=== PATIENT | female | born 1985 | race Two or more races ===

== ENCOUNTER 2016-07-26 13:11 | Emergency (ER) | payer OTHER ==
[~2016-07-26] VITALS: Ht 167.6 cm; Wt 61.2 kg
[~2016-07-26 13:11] MED LIST: AMOXICILLIN500 MG ORAL; IBUPROFEN600 MG ORAL; NKM; ZOFRAN4 M3 ORAL
[2016-07-26] MEDS ORDERED: ROBAXIN500 MG PO (13:38)
[2016-07-26] MEDS ORDERED: IBUPROFEN600 MG ORAL (13:38)
[2016-07-26 13:56] VITALS: BP 120/68
--- NOTE | 2016-07-26 23:36 | Emergency Room Report ---
History of Present Illness General Chief Complaint: Back Pain-No Injury Source: Patient Present Illness HPI The patient is a 31-year-old female presenting with lower back pain which began yesterday for no known reason. The pain is described as a 9/10 dull ache it is worse with certain movements such as twisting. Patient denies prior injury to the back. Patient denies numbness or tingling of the extremities. Pt denies any other symptoms Allergies: Coded Allergies: NO KNOWN ALLERGIES (Unverified Allergy, Unknown, 06/15/15) Patient History Past Medical History: see triage record Pertinent Family History: none Last Menstrual Period: 3 days Now: No Reviewed Nursing Documentation: PMH: Agreed, PSxH: Agreed Nursing Documentation-PMH Past Medical History: No Stated History Review of Systems All Other Systems: negative except mentioned in HPI Physical Exam Vital Signs Date Time Temp Pulse Resp B/P Pulse Ox O2 Delivery O2 Flow Rate FiO2 07/26/16 13:21 98.8 77 18 116/71 98 Room Air Sp02 EP Interpretation: reviewed, normal General Appearance: no apparent distress, alert, GCS 15, non-toxic Head: normocephalic, atraumatic Eyes: bilateral eye PERRL, bilateral eye normal inspection ENT: hearing grossly normal, normal pharynx, no angioedema, normal voice Neck: full range of motion, supple/symm/no masses Respiratory: chest non-tender, lungs clear, normal breath sounds, speaking full sentences Genitourinary: normal inspection, no CVA tenderness Musculoskeletal: back normal, gait/station normal, normal range of motion, tender - TTP over limbar parspinous muscles Neurologic: alert, oriented x3, responsive, motor strength/tone normal, sensory intact, speech normal Psychiatric: judgement/insight normal, memory normal, mood/affect normal, no suicidal/homicidal ideation Skin: normal color, no rash, warm/dry, well hydrated Medical Decision Making PA Attestation Dr. Dawson is my supervising physician. Patient management was discussed with my supervising physician Diagnostic Impression: Primary Impression: Muscle strain ER Course The patient is a 31-year-old female presenting with lower back pain which began yesterday for no known reason. Ddx considered include but not limited to sprain/strain, muscle spasm, fracture , contusion Physical exam: Vitals within normal limits. No apparent distress. Lumbar spine: Tender to palpation over paraspinous muscles. No midline tenderness. No step-offs. Full active range of motion. Normal gait The patient will be discharged home with a prescription for Motrin and Robaxin. ER precautions are given Last Vital Signs Date Time Temp Pulse Resp B/P Pulse Ox O2 Delivery O2 Flow Rate FiO2 07/26/16 13:56 98.0 70 16 120/68 98 Room Air Status: improved Disposition: HOME, SELF-CARE Condition: Improved Scripts Methocarbamol* (ROBAXIN*) 500 Mg Tablet 500 MG PO TID, #21 TAB 0 Refills Prov: LEELA HUTCHISON.ASolitario 07/26/16 Ibuprofen* (MOTRIN*) 600 Mg Tablet 600 MG ORAL Q8H Y for For Pain, #30 TAB 0 Refills Prov: LEELA HUTCHISON 07/26/16 Referrals: NOT CHOSEN [facility]/,REFERRING (PCP) Patient Instructions: Back Pain, Adult, Muscle Strain Additional Instructions: I discussed my findings with the patient. All questions and concerns have been answered. Treatment and medication compliance have been addressed. I advised the patient that they need to follow up with PMD in 3-5 days. Return to ED if pain remains or worsens, numbness or tingling occurs, new rash is noticed, fever is noticed, or if needed for any reason. Patient verbalized understanding of discharge instructions. LEELA HUTCHISON Jul 26, 2016 23:34
== END 2016-07-26 14:00 | disposition home or self-care (01) ==
LOC: EMR 13:54
DX: T14.8 Other injury of unspecified body region (principal); X58.XXXA Exposure to other specified factors, initial encounter; Y92.9 Unspecified place or not applicable; Y99.8 Other external cause status
CPT/HCPCS: 99284

== ENCOUNTER 2018-01-12 15:53 | Emergency (ER) | payer OTHER ==
[~2018-01-12] VITALS: Ht 167.6 cm; Wt 51.3 kg
[~2018-01-12 15:53] MED LIST changes: +ROBAXIN500 MG PO
[2018-01-12 16:04] VITALS: BP 112/67
--- NOTE | 2018-01-12 16:30 | Emergency Room Report ---
History of Present Illness General Chief Complaint: Sore Throat Source: Patient Present Illness HPI 32-year-old female presents emergency department complaining of 6 out of 10 in severity sore throat, with tonsillar swelling and chills since this morning. Patient states that she took one of her old amoxicillin's as well as some Tylenol. Patient states that she frequently gets strep throat. Patient denies recent travel or ill contacts denies cough, headache, nasal congestion, allergy/ sneezing. Denies neck pain or stiffness. Reports her pain is exacerbated upon swallowing. denies CP, abdominal pain or GABRIEL. Allergies: Coded Allergies: NO KNOWN ALLERGIES (Unverified Allergy, Unknown, 06/15/15) Patient History Past Medical History: see triage record Past Surgical History: none Pertinent Family History: none Now: No Reviewed Nursing Documentation: PMH: Agreed; PSxH: Agreed Nursing Documentation-PMH Past Medical History: No Stated History Review of Systems All Other Systems: negative except mentioned in HPI Physical Exam Vital Signs Date Time Temp Pulse Resp B/P (MAP) Pulse Ox O2 Delivery O2 Flow Rate FiO2 01/12/18 15:57 98.2 75 17 112/67 97 Room Air 98.2 Sp02 EP Interpretation: reviewed, normal General Appearance: no apparent distress, alert, GCS 15, non-toxic Head: normocephalic, atraumatic Eyes: bilateral eye normal inspection, bilateral eye PERRL ENT: hearing grossly normal, no angioedema, normal voice, uvula midline, moist mucus membranes, tonsillar swelling, pharyngeal erythema, tonsillar exudate Neck: full range of motion, no meningismus, no bony tend Respiratory: chest non-tender, lungs clear, normal breath sounds, no wheezing, speaking full sentences Cardiovascular #1: regular rate, rhythm Genitourinary: normal inspection Musculoskeletal: back normal, gait/station normal, normal range of motion, non- tender Neurologic: alert, oriented x3, responsive, motor strength/tone normal, sensory intact, speech normal, grossly normal Psychiatric: judgement/insight normal Skin: normal color, no rash, warm/dry, well hydrated Lymphatic: no adenopathy Medical Decision Making PA Attestation Dr. Lazaro is my supervising physician whom pt. management has been discussed with. Diagnostic Impression: Primary Impression: Pharyngitis Qualified Codes: J02.0 - Streptococcal pharyngitis ER Course 32-year-old female presents emergency department complaining of 6 out of 10 in severity sore throat, with tonsillar swelling and chills since this morning. Patient states that she took one of her old amoxicillin's as well as some Tylenol. Patient states that she frequently gets strep throat. Patient denies recent travel or ill contacts denies cough, headache, nasal congestion, allergy/ sneezing. Denies neck pain or stiffness. Reports her pain is exacerbated upon swallowing. denies CP, abdominal pain or GABRIEL. Ddx considered but are not limited to: pharyngitis, strep, [employer], ludwigs angina, URI Vital signs: are WNL, pt. is afebrile H&PE are most consistent with: pharyngitis presumed strep. ORDERS: None required at this time as the diagnosis is clinical ED INTERVENTIONS: -Prednisone 60mg PO DISCHARGE: At this time pt. is stable for d/c to home. Will provide printed patient care instructions, and any necessary prescriptions. Care plan and follow up instructions have been discussed with the patient prior to discharge. Last Vital Signs Date Time Temp Pulse Resp B/P (MAP) Pulse Ox O2 Delivery O2 Flow Rate FiO2 01/12/18 16:04 98.2 74 17 112/67 97 Room Air 98.2 Disposition: HOME, SELF-CARE Condition: Stable Scripts Acetaminophen* (TYLENOL EXTRA STRENGTH*) 500 Mg Tablet 500 MG ORAL Q6H, #20 TAB 0 Refills Prov: Daniella Neely 01/12/18 Prednisone* (PREDNISONE*) 20 Mg Tablet 40 MG ORAL DAILY for 3 Days, #6 TAB Prov: Daniella Neely 01/12/18 Amoxicillin/Potassium Clav 875-125* (AUGMENTIN 875-125 TABLET*) 1 Each Tablet 1 TAB ORAL TWICE A DAY for 7 Days, #14 TAB Prov: Daniella Neely 01/12/18 Patient Instructions: Tonsillitis Additional Instructions: Take medications as directed. Follow up with a Primary Care Provider in 3-5 days, even if your symptoms have resolved. --Please review list of primary care clinics, if you do not already have a primary care provider Return sooner to ED if new symptoms occur, or current symptoms become worse. - Please note that this Emergency Department Report was dictated using [email or web address] lead developer technology software, occasionally this can lead to erroneous entry secondary to interpretation by the dictation equipment. Daniella Neely Jan 12, 2018 16:30
[2018-01-12] MEDS ORDERED: PREDNISONE20 MG ORAL (16:31)
[2018-01-12] MEDS ORDERED: TYLENOL EXTRA500 MG ORAL (16:31)
[2018-01-12] MEDS ORDERED: AUGMENTIN 875-1 EAC1 ORAL (16:31)
[2018-01-12 16:48] VITALS: BP 112/67
== END 2018-01-12 16:48 | disposition home or self-care (01) ==
LOC: EMR 16:33
DX: J02.9 Acute pharyngitis, unspecified (principal)
CPT/HCPCS: 99284; J7512

== ENCOUNTER 2018-04-19 18:32 | Emergency (ER) | payer OTHER ==
[~2018-04-19] VITALS: Ht 157.5 cm; Wt 49.9 kg
[~2018-04-19 18:32] MED LIST changes: +AUGMENTIN 875-1 EAC1 ORAL; +PREDNISONE20 MG ORAL; +TYLENOL EXTRA500 MG ORAL
[2018-04-19 18:42] VITALS: BP 113/76
--- NOTE | 2018-04-19 19:13 | Emergency Room Report ---
History of Present Illness General Chief Complaint: Upper Respiratory Illness Source: Patient Present Illness HPI 33-year-old female presents to the emergency department complaining of nonproductive cough 5 days. Patient denies fevers or chills. Patient reports she took Advil wants an initial onset of her symptoms. Patient states she also has tried hot water with honey. Denies history of COPD/chronic asthma. Pt. reports dry persistent coughing episodes. Denies recent travel or ill contacts with similar symptoms. She denies pain. Allergies: Coded Allergies: NO KNOWN ALLERGIES (Unverified Allergy, Unknown, 06/15/15) Patient History Past Medical History: see triage record Past Surgical History: none Last Menstrual Period: 2 weeks ago Now: No Reviewed Nursing Documentation: PMH: Agreed; PSxH: Agreed Nursing Documentation-PMH Past Medical History: No Stated History Review of Systems All Other Systems: negative except mentioned in HPI Physical Exam Vital Signs Date Time Temp Pulse Resp B/P (MAP) Pulse Ox O2 Delivery O2 Flow Rate FiO2 04/19/18 18:36 98.5 70 18 113/76 97 Room Air 98.4 Sp02 EP Interpretation: reviewed, normal General Appearance: no apparent distress, alert, GCS 15, non-toxic Head: normocephalic, atraumatic ENT: hearing grossly normal, normal voice Neck: full range of motion Respiratory: chest non-tender, lungs clear, speaking full sentences, wheezing - scant wheeze bilaterally Cardiovascular #1: regular rate, rhythm Musculoskeletal: back normal, gait/station normal, normal range of motion, non- tender Neurologic: alert, oriented x3, responsive, motor strength/tone normal, sensory intact, normal gait, speech normal, grossly normal Psychiatric: judgement/insight normal Skin: normal color, no rash, warm/dry, well hydrated Lymphatic: no adenopathy Medical Decision Making PA Attestation Dr. Lazaro is my supervising physician whom pt. management has been discussed with. Diagnostic Impression: Primary Impression: Bronchitis, acute Qualified Codes: J20.9 - Acute bronchitis, unspecified ER Course 33-year-old female presents to the emergency department complaining of nonproductive cough 5 days. Patient denies fevers or chills. Patient reports she took Advil wants an initial onset of her symptoms. Patient states she also has tried hot water with honey. Denies history of COPD/chronic asthma. Pt. reports dry persistent coughing episodes. Denies recent travel or ill contacts with similar symptoms. She denies pain. Review of this patients CURES report shows no active prescriptions for controlled substances in the last 6 months. Ddx considered but are not limited to bronchitis, URI, pneumonia, PE, strep pharyngitis, meningitis. Vital signs: Pt.is afebrile VS are WNL H&PE are most consistent with bronchitis ORDERS: none required at this time, the diagnosis is clinical ED INTERVENTIONS: None required at this time. Review of this patients CURES report shows no active prescriptions for controlled substances in the last 6 months. DISCHARGE: At this time pt. is stable for d/c to home. Will provide printed patient care instructions, and any necessary prescriptions. Care plan and follow up instructions have been discussed with the patient prior to discharge. Last Vital Signs Date Time Temp Pulse Resp B/P (MAP) Pulse Ox O2 Delivery O2 Flow Rate FiO2 04/19/18 18:42 98.4 70 18 113/76 97 Room Air 98.4 Disposition: HOME, SELF-CARE Condition: Stable Scripts Prednisone* (PREDNISONE*) 20 Mg Tablet 40 MG ORAL DAILY for 5 Days, #10 TAB Prov: Daniella Neely 04/19/18 Codeine/Promethazine Hcl* (PROMETHAZINE-CODEINE SYRUP*) 118 Ml Syrup 5 ML ORAL Q6H PRN for For Cough, #120 ML 0 Refills Prov: Daniella Neely 04/19/18 Patient Instructions: Acute Bronchitis, [id number] Additional Instructions: Take medications as directed. Follow up with a Primary Care Provider in 3-5 days, even if your symptoms have resolved. --Please review list of primary care clinics, if you do not already have a primary care provider Return sooner to ED if new symptoms occur, or current symptoms become worse. Do not drink alcohol, drive, or operate heavy machinery while taking Cough Syrup as this may cause drowsiness. - Please note that this Emergency Department Report was dictated using [employer] operator technology software, occasionally this can lead to erroneous entry secondary to interpretation by the dictation equipment. Daniella Neely Apr 19, 2018 19:13
[2018-04-19] MEDS ORDERED: PREDNISONE20 MG ORAL (19:14)
[2018-04-19] MEDS ORDERED: PROMETHAZINE-C118 M1 ORAL (19:14)
[2018-04-19 19:20] VITALS: BP 115/75
== END 2018-04-19 19:25 | disposition home or self-care (01) ==
LOC: EMR 19:21
DX: J20.9 Acute bronchitis, unspecified (principal)
CPT/HCPCS: 99283